=== PATIENT | male | born 1960 | race African-American/Black ===

== ENCOUNTER 2019-02-18 05:52 | Inpatient (IN) ==
[2019-02-17 08:55] LABS: HEMATOCRIT 36.4 % (42.0-52.0); MCH 29.6 PG (27-31); MCV 89.7 FL (81-99); MPV 10.8 FL (7.4-10.4); RBC 4.06 XMIL (4.7-6.1); RDW 14.6 % (11.5-14.5); WBC 6.66 X1000 (4.8-10.8)
[2019-02-17 09:20] LABS: AGAP 10; BUN 22 mg/dL (8-22); CALCIUM 9.3 mg/dL (8.8-10.2); CHLORIDE 98 mmol/L (98-107); COSMO 280; CREATININE 1.3 mg/dL (0.7-1.2); ESTIMATED GFR > 60; GLUCOSE 110 mg/dL (70-104); SODIUM 138 mmol/L (136-145); TCO2 30 mmol/L (25-35)
[2019-02-18] MEDS ORDERED: DIPRIVAN 1% ONE (06:42)
[2019-02-18] MEDS ORDERED: XYLOCAINE-MPF 2% ONE ×2 (06:43→12:54)
[2019-02-18] MEDS ORDERED: LR 1,000 ML ONE ×4 (07:16→11:44)
[2019-02-18] MEDS ORDERED: KEFZOL 1 GM/D5W 1 GM/50 ML IVPB ONE ×2 (07:16→13:21)
[2019-02-18] MEDS ORDERED: PEPCID ONE (07:16)
[2019-02-18] MEDS ORDERED: HEPARIN ONE ×3 (07:44→12:59)
[2019-02-18] MEDS ORDERED: NS 2,000 ML ONE (07:45)
[2019-02-18] MEDS ORDERED: SUFENTA ONE (07:58)
[2019-02-18 09:30] LABS: URINE SOURCE CATH
[2019-02-18 09:56] LABS: BILIRUBIN URINE NEGATIVE (NEGATIVE); BLOOD URINE NEGATIVE (NEGATIVE); COLOR YELLOW; GLUCOSE URINE NEGATIVE (NEGATIVE); KETONE URINE NEGATIVE (NEGATIVE); LEUKOCYTES URINE NEGATIVE (NEGATIVE); NITRITE URINE NEGATIVE (NEGATIVE); PH URINE 7.5; PROTEIN URINE NEGATIVE (NEGATIVE); SP GRAVITY URINE 1.019; TURBIDITY URINE CLEAR (CLEAR); UROBILINOGEN URINE NORMAL (NORMAL)
[2019-02-18 09:57] LABS: UR EPITHELIAL CELLS <10 /HPF (<10); URINE BACTERIA NEGATIVE /HPF; URINE RBC <10 /HPF (<10); URINE WBC <10 /HPF (<10)
--- NOTE | 2019-02-18 10:01 | OPERATIVE NOTE ---
PROCEDURE DATE: 02/18/2019 PREOPERATIVE DIAGNOSIS: Right leg claudication. POSTOPERATIVE DIAGNOSIS: Right leg claudication secondary to serial superficial femoral artery stenoses. PROCEDURES PERFORMED: 1. Antegrade right femoral artery access with ultrasound guidance. 2. Right superficial femoral artery atherectomy with an H1-LS atherectomy catheter. 3. Drug-coated balloon angioplasty using an IN.PACT mm x 6 cm balloon. SURGEON: Javon Celeste M.D. ASSISTANTS: Dahiana and . INDICATION: This patient had undergone a left SFA atherectomy and balloon angioplasty, and now desired the same for his right in view of his claudication. DESCRIPTION OF PROCEDURE: Satisfactory general anesthesia was achieved. The left groin, right groin, and right leg were prepped and draped in a sterile fashion. We imaged the right common femoral artery, and accessed it under ultrasound guidance, passed a wire with Seldinger technique into the SFA. We then followed this with a 7-Ind[place]ian sheath. We gave the patient 5000 units of heparin. We shot an arteriogram, revealing serial SFA stenoses in the mid aspect of the SFA, otherwise the artery looked good, and there was inline flow all the way to the ankle via the posterior tibial and probably the anterior tibial. We then passed an 0.14 Nitrex wire across the stenoses, and we followed this with an H1-LS atherectomy catheter, and treated both the stenoses in 4 quadrants. Completion arteriogram revealed patency and no extravasation. We then obtained a 6 x 60 IN.PACT balloon, and because of the high risk of recurrence, we used the IN.PACT drug- coated balloon. We then inflated across the serial stenoses for 3 minutes. Again, completion arteriography showed complete patency, no extravasation, and a good result. We were satisfied with the result. We then removed our devices, and used a Mynx closure device according to manufacture's specifications, and after the plug was deployed, we then held pressure for 4 minutes. There was no evidence of hematoma. A sterile pressure dressing was applied. He tolerated the procedure well. 85 mL of contrast were used. He was sent to the recovery room in satisfactory condition. cc: Javon Celeste MD
--- NOTE | 2019-02-18 10:33 | EKG Report ---
Test Performed on : 02/18/2019 10:22:24 AM Test Reason : low bp Blood Pressure : / mmHG Vent. Rate : 093 BPM Atrial Rate : 093 BPM P-R Int : 148 ms QRS Dur : 094 ms QT Int : 398 ms P-R-T Axes : 042 014 068 degrees QTc Int : 494 ms Normal sinus rhythm. 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 rate has increased BY 35 BPM T wave inversion no longer evident in Lateral leads Confirmed by Angelic Alas MD ([id number]) on 02/19/2019 12:02:02 PM
[2019-02-18 10:40] LABS: HEMATOCRIT 28.3 % (42.0-52.0); HEMOGLOBIN 9.2 g/dL (14.0-18.0); RBC 3.09 XMIL (4.7-6.1); WBC 6.87 X1000 (4.8-10.8)
[2019-02-18 10:41] LABS: MCH 29.8 PG (27-31); MCHC 32.5 g/dL (33-37); MCV 91.6 FL (81-99); MPV 10.4 FL (7.4-10.4); RDW 14.7 % (11.5-14.5)
[2019-02-18] MEDS ORDERED: PITRESSIN ONE ×2 (10:47→10:49)
[2019-02-18 11:36] LABS: CK INDEX 1.5 (0.0-2.5); CK-MB 3.34 ng/mL (0.0-5.0)
[2019-02-18] MEDS ORDERED: NEO-SYNEPHRINE 50 MG in NS 250 ML IV SCH ×2 (12:00→19:00)
[2019-02-18] MEDS ORDERED: QUELICIN (DOSE) ONE (12:35)
[2019-02-18] MEDS ORDERED: HEPARIN (DOSE) ONE (12:36)
--- NOTE | 2019-02-18 12:40 | Diag Imaging Result Doc PS360 ---
CT ABD/PELVIS W/IV CONT ONLY - 02/18/2019 INDICATION: Low B/P COMPARISON: None FINDINGS: There is a huge central and right-sided retroperitoneal acute hemorrhage. This measures 18.9 x 9.8 x 7.3 cm. Blood extends along Morison's pouch up to the posterior right hemidiaphragm. There is an arterial pseudoaneurysm at the anterior distal right external iliac artery, nearly at the origin of the inferior epigastric artery. No hematoma in the right femoral canal. There is some significant linear atelectasis in the lung bases. The kidneys are lobular. There is patchy heterogeneous hypoenhancement of the kidneys suggesting acute tubular necrosis. There is a Shaw catheter in the urinary bladder. IMPRESSION: 1. Pseudoaneurysm of the distal most right external iliac artery. Huge retroperitoneal acute hematoma. 2. Lobular kidneys with acute tubular necrosis. 3. This report was discussed with RT Valdemar on 02/18/2019 at 12:35 PM and was readback. This exam was performed using automated exposure control, adjustment of mA or kV according to patient size, and/or use of iterative reconstruction technique Electronically signed by Juan Chou 02/18/2019 12:37 PM
[2019-02-18] MEDS ORDERED: AMIDATE ONE (12:53)
[2019-02-18 12:57] LABS: HEMATOCRIT 27.3 % (42.0-52.0); HEMOGLOBIN 8.8 g/dL (14.0-18.0)
[2019-02-18] MEDS ORDERED: NS 1,000 ML ONE ×2 (12:59→16:41)
[2019-02-18] MEDS ORDERED: SENSORCAINE 0.25%/EPI 1:200,000 ONE (12:59)
[2019-02-18] MEDS ORDERED: EPHEDRINE ONE (13:29)
[2019-02-18] MEDS ORDERED: ZEMURON ONE (13:30)
[2019-02-18] MEDS ORDERED: VERSED ONE (13:38)
[2019-02-18] MEDS ORDERED: BRIDION ONE (13:49)
--- NOTE | 2019-02-18 15:17 | OPERATIVE NOTE ---
PROCEDURE DATE : 02/18/2019 NAME OF PROCEDURE: Exploration of right external iliac artery for bleeding with suture repair. PREOPERATIVE DIAGNOSIS: 1. Persistent hypotension. 2. Acute anemia. 3. Evidence of retroperitoneal bleed on computed tomography scan. POSTOPERATIVE DIAGNOSIS: 1. Persistent hypotension. 2. Acute anemia. 3. Evidence of retroperitoneal bleed on computed tomography scan. DESCRIPTION OF PROCEDURE: After satisfactory general endotracheal anesthesia achieved, the abdomen and right leg were prepped and draped in sterile fashion. Made a vertical incision in the right groin dissected down to the common femoral artery. We surrounded the vessel loops, small branches, or surrounded small vessel loops. We incised the inguinal ligament, divided some of the muscle and then dissected up into the external iliac artery. Here, we identified the puncture site, which upon touching it basically bled. So, we were able to get about it enough to clamp the external iliac artery. We cleaned off adventitia from the artery and placed a 4-0 Prolene figure- of-eight stitch. We then unclamped the vessel and flow was established and no further bleeding was noted from the puncture site. We used the electrocautery to achieve hemostasis within the subcutaneous tissue. The vessel loops were removed. We irrigated out the wound. We then closed the external oblique aponeurosis with 2-0 Polysorb ifylxa-fs-zynrw stitches as best we could and then we closed the subcutaneous tissue in 2 layers with 2-0 Polysorb running. We then closed the skin with a 4-0 Polysorb subcuticular stitch and then sterile nylon dressing was applied. He tolerated it well and was sent to the recovery room in stable condition. cc: Javon Celeste MD
[2019-02-18 16:50] LABS: HEMATOCRIT 32.8 % (42.0-52.0); HEMOGLOBIN 10.7 g/dL (14.0-18.0)
[2019-02-18] MEDS ORDERED: ALEVE PO PRN (17:31)
[2019-02-18] MEDS ORDERED: NORCO-10 PO PRN (17:31)
[2019-02-18] MEDS ORDERED: ZOFRAN IV PRN (17:31)
[2019-02-18] MEDS ORDERED: ULTRAM PO PRN (17:31)
[2019-02-18] MEDS ORDERED: PERICOLACE PO ONE (18:16)
[2019-02-18] MEDS: MORPHINE IV PRN (18:19)
[2019-02-18] MEDS: NORCO-7.5 PO PRN (18:20)
--- NOTE | 2019-02-18 19:16 | GENERAL SURGERY PROGRESS NOTE ---
DATE: 02/18/2019 At 6:15 in the afternoon, his heart rate is 69, blood pressure is 100/75. His bandage is dry. Hemoglobin is 10.7, hematocrit 32.8 at 4:35 this afternoon. There is no evidence of any ongoing bleeding. He complains about constipation. We will give him a laxative. cc: Javon Celeste MD
[2019-02-19] MEDS: NS 1,000 ML IV SCH ×4 (03:18→19:56)
[2019-02-19 05:16] LABS: BASO# 0.02 X1000 (0.0-0.2); BASO% 0.2 % (0.0-0.8); EOS# 0.03 X1000 (0.0-0.7); EOS% 0.2 % (0.0-10.0); HEMATOCRIT 26.6 % (42.0-52.0); HEMOGLOBIN 9.1 g/dL (14.0-18.0); IMM GRAN# 0.04 X1000 (0.0-0.04); IMM GRAN% 0.3 % (0.0-0.5); LYMPH# 2.48 X1000 (1.2-3.4); LYMPH% 20.3 % (20.5-51.1); MCH 29.7 PG (27-31); MCHC 34.2 g/dL (33-37); MCV 86.9 FL (81-99); MONO% 7.4 % (1.7-9.3); MPV 11.2 FL (7.4-10.4); NEUT# 8.73 X1000 (1.4-6.5); NEUT% 71.6 % (42.2-75.2); PLT 148 X1000 (130-400); RBC 3.06 XMIL (4.7-6.1); RDW 14.6 % (11.5-14.5)
[2019-02-19 05:44] LABS: AGAP 9; BUN 18 mg/dL (8-22); CALCIUM 8.1 mg/dL (8.8-10.2); CHLORIDE 106 mmol/L (98-107); COSMO 279; CREATININE 1.2 mg/dL (0.7-1.2); ESTIMATED GFR > 60; GLUCOSE 125 mg/dL (70-104); POTASSIUM 3.8 mmol/L (3.5-5.1); SODIUM 138 mmol/L (136-145); TCO2 23 mmol/L (25-35)
--- NOTE | 2019-02-19 07:30 | GENERAL SURGERY PROGRESS NOTE ---
DATE: 02/19/2019 SUBJECTIVE: Mr. Gutierrez is doing generally well. He has been off Ganesh-Synephrine since about 3 o'clock. OBJECTIVE: His heart rate is 87, blood pressure is about 90 to 100 systolic. His white count this morning 12,000, hemoglobin 9.1, hematocrit 26.6. BUN 18, creatinine 1.2. ASSESSMENT AND PLAN: We have stopped all of his antihypertensives which included lisinopril, Norvasc, metoprolol and chlorthalidone. Plan today is feed him and get his Shaw out and get him up in the chair. We will continue to monitor his blood pressure today before transferring him out of the unit. cc: Javon Celeste MD
[2019-02-19] MEDS: ASPIRIN EC PO SCH (08:50)
[2019-02-19] MEDS: LIPITOR PO SCH (08:50)
[2019-02-19] MEDS: PLAVIX PO SCH (08:50)
[2019-02-19] MEDS: MORPHINE IV PRN (10:18)
--- NOTE | 2019-02-19 15:33 | ECHO REPORT ---
ORDER DATE: 02/19/2019 INDICATION: Hypotension. FINDINGS: 1. The right atrium appears normal in size. 2. No significant tricuspid regurgitation is identified. 3. Right ventricle is difficult to visualize, but overall I do not see any clear evidence of significant enlargement or abnormalities of the right ventricle. Again, the right ventricular free wall was difficult to visualize on this study. 4. No significant pulmonic insufficiency. 5. Normal left atrial size. Dimension of 3.8, volume index of 21. 6. No mitral valve prolapse. No significant mitral regurgitation. 7. Normal LV size, end-diastolic dimension of 3.6. There is moderate left ventricular hypertrophy with a posterior and interventricular septal wall thickness of 1.5 cm each. Normal LV systolic function. The estimated EF is greater than 55%. Segmental abnormalities are difficult to estimate due to this difficult study. 8. Aortic valve opens well. No evidence of stenosis or insufficiency. 9. Aorta appears normal in visualized segments. 10. No pericardial effusion seen. cc: MD Javon Sauer MD
[2019-02-19] MEDS: MILK OF MAGNESIA PO PRN (16:22)
[2019-02-20] MEDS: NS 1,000 ML IV SCH (04:49)
[2019-02-20 05:29] LABS: BASO# 0.01 X1000 (0.0-0.2); BASO% 0.1 % (0.0-0.8); EOS# 0.06 X1000 (0.0-0.7); EOS% 0.5 % (0.0-10.0); HEMATOCRIT 23.1 % (42.0-52.0); HEMOGLOBIN 7.7 g/dL (14.0-18.0); IMM GRAN# 0.03 X1000 (0.0-0.04); IMM GRAN% 0.2 % (0.0-0.5); LYMPH# 1.56 X1000 (1.2-3.4); LYMPH% 12.6 % (20.5-51.1); MCH 29.3 PG (27-31); MCHC 33.3 g/dL (33-37); MCV 87.8 FL (81-99); MONO# 1.23 X1000 (0.11-0.59); MONO% 9.9 % (1.7-9.3); MPV 10.9 FL (7.4-10.4); NEUT# 9.48 X1000 (1.4-6.5); NEUT% 76.7 % (42.2-75.2); PLT 143 X1000 (130-400); RBC 2.63 XMIL (4.7-6.1); RDW 14.4 % (11.5-14.5); WBC 12.37 X1000 (4.8-10.8)
[2019-02-20 05:45] LABS: AGAP 9; BUN 15 mg/dL (8-22); CALCIUM 8.2 mg/dL (8.8-10.2); CHLORIDE 104 mmol/L (98-107); COSMO 277; ESTIMATED GFR > 60; GLUCOSE 136 mg/dL (70-104); POTASSIUM 3.5 mmol/L (3.5-5.1); SODIUM 137 mmol/L (136-145); TCO2 24 mmol/L (25-35)
[2019-02-20] MEDS ORDERED: NS 1,000 ML IV SCH (08:34)
--- NOTE | 2019-02-20 08:47 | GENERAL SURGERY PROGRESS NOTE ---
DATE: 02/20/2019 TIME: 8:30 in the morning. SUBJECTIVE: Mr. Gutierrez does not really have an appetite. Complains that his bowels need to move. OBJECTIVE: Vital Signs: He is afebrile, heart rate is 88, blood pressure 126/72. Lungs: Sound clear. Abdomen: Only mildly tender. Bandage is dry on the right. Extremities: His legs feel fine. He had intake of 2185, output 1365. LABORATORY DATA: His laboratory today reveals a white count of 12,400, hemoglobin has fallen to 7.7, hematocrit 23.1. Chemistry is fine. PLAN: The plan will be to reduce his IV to KVO. I will repeat his CT scan with p.o. and IV contrast. In view of the fall of his hemoglobin, we will give him 1 unit of blood. cc: Javon Celeste MD
[2019-02-20] MEDS: ASPIRIN EC PO SCH (08:59)
[2019-02-20] MEDS: LIPITOR PO SCH (09:00)
[2019-02-20] MEDS: TOPROL XL PO SCH (09:13)
[2019-02-20] MEDS: NORVASC PO SCH (09:13)
[2019-02-20] MEDS: HYGROTON PO SCH (09:13)
[2019-02-20] MEDS: PRINIVIL PO SCH (09:13)
--- NOTE | 2019-02-20 11:25 | Diag Imaging Result Doc PS360 ---
EXAM: CT ABD/PELVIS W/PO AND IV CON HISTORY: retroperitoneal hematoma TECHNIQUE: CT abdomen and pelvis with intravenous contrast COMPARISON: 02/18/2019 FINDINGS: Mild decrease in the size of the large right retroperitoneal hematoma. Decrease in the opacification of the pseudoaneurysm of the distal external iliac artery right. Development of a small right pleural effusion. Persistent infiltrates and/or atelectasis in the lung bases. No change in the organs in the upper abdomen except for improved renal enhancement. No hydronephrosis. No bowel obstruction. Removal of the Shaw catheter. IMPRESSION: Interval improvement This exam was performed using automated exposure control, adjustment of mA or kV according to patient size, and/or use of iterative reconstruction technique. Electronically signed by Ranulfo Alvarenga 02/20/2019 11:22 AM
[2019-02-20] MEDS ORDERED: LASIX IV ONE (12:12)
[2019-02-21 05:11] LABS: BASO# 0.01 X1000 (0.0-0.2); BASO% 0.1 % (0.0-0.8); EOS# 0.16 X1000 (0.0-0.7); EOS% 1.3 % (0.0-10.0); HEMATOCRIT 25.5 % (42.0-52.0); HEMOGLOBIN 8.4 g/dL (14.0-18.0); IMM GRAN# 0.03 X1000 (0.0-0.04); IMM GRAN% 0.2 % (0.0-0.5); LYMPH# 2.09 X1000 (1.2-3.4); LYMPH% 16.9 % (20.5-51.1); MCH 28.7 PG (27-31); MCHC 32.9 g/dL (33-37); MONO# 1.22 X1000 (0.11-0.59); MONO% 9.9 % (1.7-9.3); MPV 10.9 FL (7.4-10.4); NEUT# 8.86 X1000 (1.4-6.5); NEUT% 71.6 % (42.2-75.2); PLT 144 X1000 (130-400); RBC 2.93 XMIL (4.7-6.1); WBC 12.37 X1000 (4.8-10.8)
[2019-02-21 05:22] LABS: POTASSIUM 3.6 mmol/L (3.5-5.1); SODIUM 139 mmol/L (136-145)
[2019-02-21 05:23] LABS: AGAP 10; BUN 13 mg/dL (8-22); CALCIUM 8.5 mg/dL (8.8-10.2); CHLORIDE 104 mmol/L (98-107); COSMO 278; CREATININE 1.1 mg/dL (0.7-1.2); ESTIMATED GFR > 60; GLUCOSE 108 mg/dL (70-104); TCO2 25 mmol/L (25-35)
[2019-02-21] MEDS: HYGROTON PO SCH (09:32)
[2019-02-21] MEDS: PRINIVIL PO SCH (09:32)
[2019-02-21] MEDS: TOPROL XL PO SCH (09:32)
[2019-02-21] MEDS: LIPITOR PO SCH (09:32)
[2019-02-21] MEDS: ASPIRIN EC PO SCH (09:32)
[2019-02-21] MEDS: NORVASC PO SCH (09:32)
[2019-02-21] MEDS ORDERED: SALINE LOCK IV FLUID XX ONE (11:58)
[2019-02-21] MEDS ORDERED: MILK OF MAGNESIA PO ONE (12:00)
--- NOTE | 2019-02-21 13:21 | GENERAL SURGERY PROGRESS NOTE ---
DATE: 02/21/2019 Mr. Gutierrez said he feels a lot better today. He is afebrile. Heart rate 71, blood pressure 133/75. His abdomen feels better. He has been eating solid food. His wound in the right groin is fine. White count 12,400, hemoglobin 8.4, hematocrit 25.5. BUN and creatinine are normal. PLAN: To move him out to a regular room. He should be able to be discharged tomorrow, February 22. He should resume his usual medicines at home including aspirin and Plavix. Dr. Dyer is to cover the weekend time. cc: Javon Celeste MD
[2019-02-21] MEDS: NORCO-7.5 PO PRN (17:10)
[2019-02-21] MEDS: MILK OF MAGNESIA PO PRN (21:53)
--- NOTE | 2019-02-22 07:41 | GENERAL SURGERY PROGRESS NOTE ---
DATE: 02/22/2019 Patient seems to be doing well. He has not had any signs of bleeding. At this point, he wants to go home. We will try to make arrangements. He needs to go home on aspirin and Plavix. cc: MD Javon Fernandez MD
[2019-02-22 08:57] VITALS: BP 117/59
[2019-02-22] MEDS: ASPIRIN EC PO SCH (09:48)
[2019-02-22] MEDS: NORVASC PO SCH (09:49)
[2019-02-22] MEDS: PLAVIX PO SCH (09:49)
[2019-02-22] MEDS: PRINIVIL PO SCH (09:49)
[2019-02-22] MEDS: TOPROL XL PO SCH (09:49)
[2019-02-22] MEDS: HYGROTON PO SCH (09:49)
[2019-02-22] MEDS: LIPITOR PO SCH (09:49)
[2019-02-22] MEDS: NORCO-7.5 PO PRN (09:54)
--- NOTE | 2019-03-03 17:19 | DISCHARGE SUMMARY ---
ADMISSION DATE: 02/18/2019 DISCHARGE DATE: 02/22/2019 PRIMARY DISCHARGE DIAGNOSES: 1. Right leg claudication. 2. Postoperative bleeding from the external iliac artery with retroperitoneal hematoma and blood- loss anemia. PRIMARY PROCEDURE: Antegrade right femoral artery access, right superficial femoral artery atherectomy and drug coated balloon angioplasty. SECONDARY PROCEDURE: Right femoral external iliac exploration with suture repair of bleeding artery. HOSPITAL COURSE: Mr. Gutierrez is a 58-year-old who underwent the 1st procedure but then developed hypotension and blood-loss anemia. A CT scan suggested a retroperitoneal hematoma and a pseudoaneurysm from his distal external iliac artery. He was taken back to the operating room the same day. The external iliac was explored and suture repaired. Postoperatively, he was observed in the intensive care unit. He did require a transfusion for his blood-loss anemia. Initially, he required Ganesh-Synephrine for blood pressure support but eventually that resolved. We did do an echo because of his hypotension but it appeared to be satisfactory and his EF was estimated at 55%. Repeat CT on the showed interval improvement in the hematoma. By 02/22, he was obviously better and it was felt he could be discharged home. He will go home on aspirin and Plavix to preserve the intra-arterial intervention on his SFA. He was discharged home on his usual medications including aspirin and Plavix. He was given some tramadol for pain. FOLLOWUP: He will return to see me in the office in followup. cc: Javon Celeste MD
== END 2019-02-22 10:35 | disposition home or self-care (01) | DRG 270 ==
LOC: OR 05:52 → 4N 05:52 → OBSVTOIN 13:43 → ICU 16:24 → 4N 02-21 13:59
PROVIDERS: ADMIT Surgery; ATTEND Surgery